=== PATIENT | female | born 1950 | race American Indian/Alaskan Native ===

== ENCOUNTER 2022-03-28 08:04 | Inpatient (IN) | payer MEDICARE ==
[2022-03-28] MEDS ORDERED: IPRATROPIUM/ALBUTEROL SULFATE 3 ML AMPUL.NEB IH ONE (09:03)
[2022-03-28] MEDS ORDERED: methylPREDNISolone Sod Succinate 125 MG/2 ML INJ IV ONE (09:03)
--- NOTE | 2022-03-28 09:07 | Emergency Department Report ---
ED Shortness of Breath HPI - General Stated Complaint: SONIA Time Seen by Provider: 03/28/22 08:52 Source: patient, EMS, old records reviewed Mode of arrival: Stretcher Limitations: No Limitations - History of Present Illness Initial Comments: 71-year-old female with a past medical history of obesity CHF with a EF of 30 to 40%, COPD not currently on home oxygen, hyperglycemia in the past secondary to steroid use, hypertension, paroxysmal atrial fibrillation noncompliant with Xar elto, and possible sleep apnea presents to the hospital with shortness of breath since waking up this morning. Patient states she has had audible wheezing not improved with albuterol inhaler. Positive nonproductive cough without fever reported EMS provided albuterol 2.5 mg in the scene and oxygen via nonrebreather with improvement in symptoms. Patient states she feels much better. She denies anterior chest pain but complains of posterior thoracic pain with inspiration similar to previous COPD episodes. Patient does not have a primary care doctor. As per medical record review patient was admitted here in January for COPD exacerbation and CHF. 2 weeks ago she ran out of most of her prescribed medications excluding Xarelto and currently only has one of her water pills available. She denies history of PE/DVT As per medical record review patient does have a history of CO2 retention and respiratory acidosis and was infected with COVID October 2021 - Related Data Previous Rx's Medication Instructions Recorded Last Taken Type Albuterol Mdi (or & Nicu Only) 2 puff IH QID PRN #8.5 gram 02/10/22 Unknown Rx [ProAir HFA Inhaler] Cholecalciferol Vit D3 [Vitamin D3 1,000 unit PO QDAY #15 tablet 02/10/22 Unknown Rx 1,000 UNIT TAB] Furosemide [Lasix TAB] 40 mg PO QDAY #30 tablet 02/10/22 Unknown Rx Losartan [Cozaar] 50 mg PO QDAY #30 tablet 02/10/22 Unknown Rx Pantoprazole [Protonix TAB] 40 mg PO QDAC #30 tablet 02/10/22 Unknown Rx Rivaroxaban [Xarelto] 20 mg PO QPMDIAB #60 tablet 02/10/22 Unknown Rx Spironolactone [Aldactone] 25 mg PO QDAY #30 tablet 02/10/22 Unknown Rx carvediloL [Coreg] 6.25 mg PO BID #60 tablet 02/10/22 Unknown Rx Allergies Allergy/AdvReac Type Severity Reaction Status Date / Time No Known Allergies Allergy Unverified 10/28/21 21:05 ED Review of Systems ROS: Stated complaint: SONIA Other details as noted in HPI Comment: All other systems reviewed and negative ED Past Medical Hx - Past Medical History Hx Hypertension: Yes Hx Congestive Heart Failure: Yes Hx Diabetes: Yes Hx Asthma: Yes Hx COPD: Yes - Social History Smoking Status: Never Smoker - Medications Home Medications: Home Medications Medication Instructions Recorded Confirmed Last Taken Type Albuterol Mdi (or & Nicu Only) 2 puff IH QID PRN #8.5 gram 02/10/22 Unknown Rx [ProAir HFA Inhaler] Cholecalciferol Vit D3 [Vitamin D3 1,000 unit PO QDAY #15 tablet 02/10/22 Unknown Rx 1,000 UNIT TAB] Furosemide [Lasix TAB] 40 mg PO QDAY #30 tablet 02/10/22 Unknown Rx Losartan [Cozaar] 50 mg PO QDAY #30 tablet 02/10/22 Unknown Rx Pantoprazole [Protonix TAB] 40 mg PO QDAC #30 tablet 02/10/22 Unknown Rx Rivaroxaban [Xarelto] 20 mg PO QPMDIAB #60 tablet 02/10/22 Unknown Rx Spironolactone [Aldactone] 25 mg PO QDAY #30 tablet 02/10/22 Unknown Rx carvediloL [Coreg] 6.25 mg PO BID #60 tablet 02/10/22 Unknown Rx ED Physical Exam - Other Other exam information: General: No acute distress Head: Atraumatic Eyes: normal appearance ENT: Moist mucous membranes Neck: Normal appearance, no midline tenderness Chest: Mild crackle at the base without wheezing, tachypnea, or accessory CV: Regular rate and rhythm Abdomen: Soft, normal bowel sounds, nontender, nondistended, no rebound or guarding Back: Normal inspection Extremity: Trace lower extremity edema, no calf tenderness or leg asymmetry Neuro: Alert O x 3, no facial asymmetry, speech clear, no gross motor sensory deficit Psych: Appropriate behavior Skin: No rash ED Course Vital Signs 03/28/22 03/28/22 08:50 09:50 Temperature 98 F Pulse Rate 69 Pulse Rate [ 71 Bilateral Throughout] Respiratory 20 Rate Respiratory 16 Rate [Bilateral Throughout] Blood Pressure 154/69 O2 Sat by Pulse 100 Oximetry - Reevaluation(s) Reevaluation #1: 03/28/22 11:07 abg requested, still pending due to difficulty obtaining sample as per resp therapist ED Medical Decision Making - Lab Data Result diagrams: 03/28/22 09:14 03/28/22 09:14 Lab Results 03/28/22 03/28/22 03/28/22 Range/Units 09:14 09:14 09:14 WBC 5.2 (4.5-11.0) K/mm3 RBC 4.26 (3.65-5.03) M/mm3 Hgb 12.1 (10.1-14.3) gm/dl Hct 38.2 (30.3-42.9) % MCV 90 (79-97) fl MCH 29 (28-32) pg MCHC 32 (30-34) % RDW 15.0 (13.2-15.2) % Plt Count 195 (140-440) K/mm3 Lymph % (Auto) 18.2 (13.4-35.0) % [place] % (Auto) 7.8 H (0.0-7.3) % Eos % (Auto) 1.5 (0.0-4.3) % Baso % (Auto) 3.0 H (0.0-1.8) % Lymph # (Auto) 0.9 L (1.2-5.4) K/mm3 [place] # (Auto) 0.4 (0.0-0.8) K/mm3 Eos # (Auto) 0.1 (0.0-0.4) K/mm3 Baso # (Auto) 0.2 H (0.0-0.1) K/mm3 Seg Neutrophils % 69.5 (40.0-70.0) % Seg Neutrophils # 3.6 (1.8-7.7) K/mm3 PT 14.8 (12.2-14.9) Sec. INR 1.04 (0.87-1.13) APTT 33.4 (24.2-36.6) Sec. Sodium 141 (137-145) mmol/L Potassium 4.6 (3.6-5.0) mmol/L Chloride 107.6 H (98-107) mmol/L Carbon Dioxide 25 (22-30) mmol/L Anion Gap 13 mmol/L BUN 13 (7-17) mg/dL Creatinine 0.4 L (0.6-1.2) mg/dL Estimated GFR > 60 ml/min BUN/Creatinine Ratio 33 % Glucose 86 (65-100) mg/dL Calcium 9.0 (8.4-10.2) mg/dL Total Bilirubin 1.00 (0.1-1.2) mg/dL AST 25 (5-40) units/L ALT 22 (7-56) units/L Alkaline Phosphatase 79 (35-129) units/L Troponin T < 0.010 (0.00-0.029) ng/mL NT-Pro-B Natriuret Pep (0-900) pg/mL Total Protein 7.2 (6.3-8.2) g/dL Albumin 3.8 L (3.9-5) g/dL Albumin/Globulin Ratio 1.1 % 03/28/22 Range/Units 09:14 WBC (4.5-11.0) K/mm3 RBC (3.65-5.03) M/mm3 Hgb (10.1-14.3) gm/dl Hct (30.3-42.9) % MCV (79-97) fl MCH (28-32) pg MCHC (30-34) % RDW (13.2-15.2) % Plt Count (140-440) K/mm3 Lymph % (Auto) (13.4-35.0) % [place] % (Auto) (0.0-7.3) % Eos % (Auto) (0.0-4.3) % Baso % (Auto) (0.0-1.8) % Lymph # (Auto) (1.2-5.4) K/mm3 [place] # (Auto) (0.0-0.8) K/mm3 Eos # (Auto) (0.0-0.4) K/mm3 Baso # (Auto) (0.0-0.1) K/mm3 Seg Neutrophils % (40.0-70.0) % Seg Neutrophils # (1.8-7.7) K/mm3 PT (12.2-14.9) Sec. INR (0.87-1.13) APTT (24.2-36.6) Sec. Sodium (137-145) mmol/L Potassium (3.6-5.0) mmol/L Chloride (98-107) mmol/L Carbon Dioxide (22-30) mmol/L Anion Gap mmol/L BUN (7-17) mg/dL Creatinine (0.6-1.2) mg/dL Estimated GFR ml/min BUN/Creatinine Ratio % Glucose (65-100) mg/dL Calcium (8.4-10.2) mg/dL Total Bilirubin (0.1-1.2) mg/dL AST (5-40) units/L ALT (7-56) units/L Alkaline Phosphatase (35-129) units/L Troponin T (0.00-0.029) ng/mL NT-Pro-B Natriuret Pep 1939 H (0-900) pg/mL Total Protein (6.3-8.2) g/dL Albumin (3.9-5) g/dL Albumin/Globulin Ratio % - EKG Data -: EKG Interpreted by Me (lyle) EKG shows normal: sinus rhythm, ST-T waves (no stemi) Rate: normal - EKG Data When compared to previous EKG there are: no significant change - Radiology Data Radiology results: report reviewed CHEST 1 VIEW 03/28/2022 10:06 AM INDICATION / CLINICAL INFORMATION: sob. COMPARISON: 02/07/22 FINDINGS: SUPPORT DEVICES: None. HEART / MEDIASTINUM: Heart is enlarged but stable. LUNGS / PLEURA: Mild to moderate bilateral interstitial pulmonary edema. No acute airspace disease. No significant pleural effusion. No pneumothorax. ADDITIONAL FINDINGS: No significant additional findings. IMPRESSION: 1. Cardiomegaly with pulmonary edema. - Medical Decision Making 71-year-old female presents to the hospital with shortness of breath since this morning. Received bronchodilators in route to the hospital with some improv ement in symptoms. Patient did not have wheezing on my initial examination is to have basilar crackles. Chest x-ray suggestive of CHF. Patient admits to noncompliance with most of her medications except for her 1 remaining diuretic pill. Labs show elevated BNP. No signs of ST elevation [place] or NSTEMI at this time. patient provided 1 dose of IV Lasix. Will be discussed with hospitalist for admission abg pending at dispo abg result appears to be a venous sample. Critical Care Time: No Critical care attestation.: If time is entered above; I have spent that time in minutes in the direct care of this critically ill patient, excluding procedure time. ED Disposition Clinical Impression: Acute on chronic systolic heart failure, COPD exacerbation, Noncompliance with medication regimen Disposition: 09 ADMITTED INPATIENT Is pt being admited?: Yes Condition: Stable Instructions: Chronic Obstructive Pulmonary Disease (ED) Time of Disposition: 11:10 (Dr Monique/hospitalist)
--- NOTE | 2022-03-28 10:25 | XRay Report ---
CHEST 1 VIEW 03/28/2022 10:06 AM INDICATION / CLINICAL INFORMATION: sob. COMPARISON: 02/07/22 FINDINGS: SUPPORT DEVICES: None. HEART / MEDIASTINUM: Heart is enlarged but stable. LUNGS / PLEURA: Mild to moderate bilateral interstitial pulmonary edema. No acute airspace disease. N o significant pleural effusion. No pneumothorax. ADDITIONAL FINDINGS: No significant additional findings. IMPRESSION: 1. Cardiomegaly with pulmonary edema. Signer Name: Aishwarya Levy MD Signed: 03/28/2022 10:20 AM Workstation Name: [id number]
[2022-03-28 10:30] LABS: Basophils # (Auto) 0.2 K/mm3 (0.0-0.1); Eosinophils # (Auto) 0.1 K/mm3 (0.0-0.4); Eosinophils % (Auto) 1.5 % (0.0-4.3); Hematocrit 38.2 % (30.3-42.9); Hemoglobin 12.1 gm/dl (10.1-14.3); Lymphocytes # (Auto) 0.9 K/mm3 (1.2-5.4); Lymphocytes % (Auto) 18.2 % (13.4-35.0); Mean Corpuscular HGB Conc 32 % (30-34); Mean Corpuscular Volume 90 fl (79-97); Monocytes # (Auto) 0.4 K/mm3 (0.0-0.8); Monocytes % (Auto) 7.8 % (0.0-7.3); Platelet Count 195 K/mm3 (140-440); Red Blood Count 4.26 M/mm3 (3.65-5.03)
[2022-03-28] MEDS ORDERED: FUROSEMIDE 40 MG/4 ML INJ IV ONE (10:46)
[2022-03-28 10:48] LABS: INR 1.04 (0.87-1.13)
[2022-03-28 10:49] LABS: Partial Thromboplastin Time 33.4 Sec. (24.2-36.6)
[2022-03-28 10:51] LABS: Alanine Aminotransferase 22 units/L (7-56); Albumin 3.8 g/dL (3.9-5); Blood Urea Nitrogen 13 mg/dL (7-17); Hemolysis Index 18
[2022-03-28 11:02] LABS: BUN/Creatinine Ratio 33
--- NOTE | 2022-03-28 11:12 | History and Physical Report ---
History of Present Illness Chief complaint: I am short of breath and I feel swollen History of present illness: 71 YO Female with COPD, Systolic/Diastolic CHF(EF 35%), HTN, DM, Metabolic Syndrome, GERD, Atrial Fib on therapeutic anticoagulation with Xarelto presents to ED for evaluation. Patient reports "I am short of breath and I feel swollen". Patient states that over the past 2 days she has experienced shortnes s of breath, lower extremity edema, decreased exercise tolerance, dyspnea on exertion, dyspnea at rest. Patient acknowledges orthopnea as well as paroxysmal nocturnal dyspnea. Patient knowledges noncompliance with medication over the past several weeks as well as noncompliance with low-sodium diet. Patient acknowledges 10 pound weight gain over the past week. EMS was notified and upon arrival the patient was found to be in distress and subsequent transported to [facility] for further care and evaluation of the aforementioned symptoms. The patient was seen and evaluated in the emergency department. All lab and imaging studies reviewed. The patient was found to be in significant respiratory distress using accessory muscles to breathe, leaning forward in bed, tripoding, and unable to speak in complete sentences. Patient found to have a pulse oximetry of 89% on room air which is consistent with acute hypoxemic respiratory failure. Patient also found to have clinical symptoms consistent with CHF decompensation. Patient admitted to medical floor and initiated on CHF protocol. Patient a dmitted due to increased risk of worsening symptoms after medical stabilization. Patient denies fever, chills, palpitation, productive cough, skin rash, recent contact, known exposure to COVID-19. Prior admission on 02/07/2022 reviewed. All medication listed at time of admission has been reconciled. Advanced care planning conducted in ED. Past History Past Medical History: COPD, diabetes, heart failure, hypertension, other (See HPI) Past Surgical History: No surgical history, Other (Reviewed) Social history: single. denies: smoking, alcohol abuse, prescription drug abuse Family history: diabetes, hypertension Medications and Allergies Allergies Allergy/AdvReac Type Severity Reaction Status Date / Time No Known Allergies Allergy Unverified 10/28/21 21:05 Home Medications Medication Instructions Recorded Confirmed Last Taken Type Albuterol Mdi (or & Nicu Only) 2 puff IH QID PRN #8.5 gram 02/10/22 Unknown Rx [ProAir HFA Inhaler] Cholecalciferol Vit D3 [Vitamin D3 1,000 unit PO QDAY #15 tablet 02/10/22 Unknown Rx 1,000 UNIT TAB] Furosemide [Lasix TAB] 40 mg PO QDAY #30 tablet 02/10/22 Unknown Rx Losartan [Cozaar] 50 mg PO QDAY #30 tablet 02/10/22 Unknown Rx Pantoprazole [Protonix TAB] 40 mg PO QDAC #30 tablet 02/10/22 Unknown Rx Rivaroxaban [Xarelto] 20 mg PO QPMDIAB #60 tablet 02/10/22 Unknown Rx Spironolactone [Aldactone] 25 mg PO QDAY #30 tablet 02/10/22 Unknown Rx carvediloL [Coreg] 6.25 mg PO BID #60 tablet 02/10/22 Unknown Rx Review of Systems Constitutional: weight gain, no weight loss, no fever, no chills Ears, nose, mouth and throat: no ear pain, no ear discharge, no tinnitis, no decreased hearing, no nose pain Breasts: no change in shape, no swelling, no mass Cardiovascular: orthopnea, shortness of breath, dyspnea on exertion, paroxysmal nocturnal dyspnea, high blood pressure, leg edema, decreased exercise tolerance, no chest pain Respiratory: no cough, no excessive sputum, no hemoptysis Gastrointestinal: no abdominal pain, no nausea, no vomiting, no diarrhea, no constipation Genitourinary Female: no pelvic pain, no flank pain, no dysuria, no urinary frequency, no urgency Rectal: no pain, no incontinence Musculoskeletal: no neck stiffness, no shooting arm pain, no low back pain, no shooting leg pain Integumentary: no rash, no pruritis, no wounds, no jaundice Neurological: no head injury, no paralysis, no weakness, no syncope, no ataxia Psychiatric: no anxiety, no sleep disturbances, no insomnia, no hypersomnia, no change in libido, no suicidal ideation Endocrine: no heat intolerance, no excessive thirst, no polyuria, no nocturia, no flushing Hematologic/Lymphatic: no easy bruising, no easy bleeding Allergic/Immunologic: no allergic rhinitis Exam - Constitutional Vitals: Temp Pulse Resp BP Pulse Ox 98 F 69 20 154/69 100 03/28/22 08:50 03/28/22 08:50 03/28/22 08:50 03/28/22 08:50 03/28/22 08:50 General appearance: Present: mild distress, obese - EENT Eyes: Present: PERRL ENT: hearing intact, clear oral mucosa - Neck Neck: Present: masses or JVD - Respiratory Respiratory effort: labored, accessory muscle use, stridor Respiratory: bilateral: diminished, rales - Cardiovascular Rhythm: irregularly irregular - Extremities Extremity abnormal: edema Peripheral Pulses: within normal limits - Abdominal General gastrointestinal: Present: soft, non-tender, non-distended, normal bowel sounds Female genitourinary: Present: normal - Integumentary Integumentary: Present: clear, dry - Musculoskeletal Musculoskeletal: generalized weakness - Psychiatric Psychiatric: appropriate mood/affect, intact judgment & insight - Neurologic Neurologic: CNII-XII intact, moves all extremities HEART Score - HEART Score Troponin: Troponin T < 0.010 ng/mL (0.00-0.029) 03/28/22 09:14 Results - Labs CBC & Chem 7: 03/28/22 09:14 03/28/22 09:14 Labs: Abnormal lab results 03/28/22 03/28/22 03/28/22 Range/Units 09:14 09:14 09:14 [place] % (Auto) 7.8 H (0.0-7.3) % Baso % (Auto) 3.0 H (0.0-1.8) % Lymph # (Auto) 0.9 L (1.2-5.4) K/mm3 Baso # (Auto) 0.2 H (0.0-0.1) K/mm3 Chloride 107.6 H (98-107) mmol/L Creatinine 0.4 L (0.6-1.2) mg/dL NT-Pro-B Natriuret Pep 1939 H (0-900) pg/mL Albumin 3.8 L (3.9-5) g/dL Assessment and Plan - Patient Problems (1) Acute respiratory failure with hypoxemia Status: Acute Plan to address problem: Chest x-ray, supplemental oxygen, pulse oximetry, nebulizer therapy, arterial blood gas, noninvasive positive pressure ventilation as clinically indicated. Pulmonary toilet. (2) Acute on chronic systolic heart failure Status: Acute Plan to address problem: Strict I's/O, monitor urine output every shift, daily weight, afterload reduction, blood pressure control, diuresis. Echocardiogram from 10/2021 reviewed. (3) Metabolic syndrome Status: Acute Plan to address problem: Risk factor reduction, weight control, balanced diet, increase physical activity discharge. (4) Diabetes Status: Acute Plan to address problem: Consistent carbohydrate diet, Accu-Chek, insulin protocol, hypoglycemia protocol. (5) Hypertension Status: Acute Qualifiers: Hypertension type: primary hypertension Qualified Code(s): I10 - Essential (primary) hypertension Plan to address problem: Monitor blood pressure every shift, continue medical management. (6) Noncompliance with medication regimen Status: Acute Plan to address problem: Patient counseled regarding compliance with outpatient medication. Patient knowledges understanding instructions. (7) Paroxysmal atrial fibrillation Status: Acute Plan to address problem: Rate currently controlled, continue therapeutic anticoagulation, supportive care. (8) DVT prophylaxis Status: Acute Plan to address problem: SCD to bilateral lower extremities while in bed, continue therapeutic anticoagulation. (9) Advance care planning Status: Acute Plan to address problem: Disease education conducted, care plan discussed, diagnoses discussed, prognosis discussed, patient is full code. Patient knowledges understanding agreement with care plan, +30 minutes. (10) Preventative health care Status: Acute Plan to address problem: Patient counseled regarding balanced diet, meal planning, increase physical activity discharge. Risk factor reduction for cardiovascular disease. Patient instructed to follow-up with primary care physician as outpatient for all age and risk factor appropriate screening test. +30 minutes.
[2022-03-28 11:35] LABS: ABG Base Excess 0.9 mmol/L (-2.0-3.0); ABG HCO3 25.1 mmol/L (20.0-26.0); ABG Methemoglobin 0.6 % (0.0-1.5); ABG PCO2 38.7 mm Hg; ABG PH 7.43 pH Units (7.350-7.450); ABG PO2 43.3 mm Hg (80.0-90.0)
[2022-03-28] MEDS ORDERED: ACETAMINOPHEN 325 MG TAB PO PRN (12:04)
[2022-03-28] MEDS ORDERED: ONDANSETRON 4 MG/2 ML INJ IV PRN (12:04)
[2022-03-28] MEDS ORDERED: oxyCODONE /ACETAMINOPHEN 5-325MG TAB PO PRN (12:04)
[2022-03-28] MEDS ORDERED: HYDROmorphone 0.5 MG/0.5 ML INJ IV PRN (12:04)
[2022-03-28] MEDS ORDERED: ALBUTEROL 2.5 MG/3 ML NEBU IH PRN (12:04)
[2022-03-28] MEDS: FUROSEMIDE 40 MG/4 ML INJ IV SCH (19:06)
--- NOTE | 2022-03-28 21:46 | Electrocardiograph Report ---
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
[2022-03-29] MEDS: FUROSEMIDE 40 MG/4 ML INJ IV SCH ×2 (06:26→17:20)
[2022-03-29 08:24] LABS: Alanine Aminotransferase 23 units/L (7-56); Albumin 4.6 g/dL (3.9-5); Blood Urea Nitrogen 18 mg/dL (7-17); Hemolysis Index 5
[2022-03-29 08:35] LABS: BUN/Creatinine Ratio 36
[2022-03-29] MEDS ORDERED: NON-FORMULARY EACH (Rivaroxaban 20 MG Tablet) PO SCH (10:00)
[2022-03-29] MEDS ORDERED: ALBUTEROL 8.5 GM MDI INHALATION IH PRN (16:56)
[2022-03-29] MEDS ORDERED: LOSARTAN 50 MG TAB PO SCH (16:58)
--- NOTE | 2022-03-29 16:59 | Progress Note ---
Assessment and Plan 71 YO Female with COPD, Systolic/Diastolic CHF(EF 35%), HTN, DM, Metabolic Syndrome, GERD, Atrial Fib on therapeutic anticoagulation with Xarelto presents to ED for worsening shortness of breath and lower extremity swelling. Patient found to have a pulse oximetry of 89% on room air , placed on supplemental O2 and admitted for possible CHF exacerbation. 03/29/22: Patient on 2 L nasal cannula O2, continue diuresis, hold beta-jass for now. Continue Cozaar and Xarelto. Nebulizer breathing treatment as needed. Monitor ins and outs and daily weight. Assessment and plan: --Acute on chronic systolic heart failure[EF 35 to 40%] Continue IV diuretics, Cozaar, input output monitoring We will hold beta-jass as patient on acute exacerbation Low-sodium diet, fluid restriction, cardiology consult, cardiac diet. Input output monitoring, daily weights --COPD (chronic obstructive pulmonary disease) Oxygen by nasal cannula 3 L/min. DuoNeb by nebulizer every 4 hours. Albuterol via nebulizer every 4 hours as needed --Hypertension/moderate control Continue current antihypertensives losartan 25 mg p.o. daily. Spironolactone 25 mg p.o. daily. Coreg 6.25 mg p.o. twice daily As needed hydralazine --Acute respiratory failure with hypoxemia Due to COPD exacerbation oxygen by nasal cannula 3 L/min. DuoNeb by nebulizer every 4 hours. Albuterol via nebulizer every 4 hours as needed --History of paroxysmal atrial fibrillation Rate controlled Continue Coreg 6.25 mg p.o. twice daily. Xarelto 20 mg p.o. daily. --Obesity; BMI 41.6 Advised diet modification, exercise as tolerated, weight reduction when you are medically stable --Possible obstructive sleep apnea; CPAP at night --Full CODE STATUS -- DVT prophylaxis Patient is already on Xarelto 20 mg p.o. daily Subjective Date of service: 03/29/22 Interval history: Patient seen and examined. Medical records and medication list reviewed. No acute event overnight noted by the RN. Patient continues to complains of difficulty breathing even on minimal exertion. Vitals noted Discussed plan of care at bedside with patient. Objective - Exam Narrative Exam: General appearance: Present: mild distress, obese - EENT Eyes: Present: PERRL ENT: hearing intact, clear oral mucosa - Neck Neck: Present: masses or JVD - Respiratory Respiratory effort: labored, accessory muscle use, stridor Respiratory: bilateral: diminished, rales - Cardiovascular Rhythm: irregularly irregular - Extremities Extremity abnormal: edema Peripheral Pulses: within normal limits - Abdominal General gastrointestinal: Present: soft, non-tender, non-distended, normal bowel sounds Female genitourinary: Present: normal - Integumentary Integumentary: Present: clear, dry - Musculoskeletal Musculoskeletal: generalized weakness - Psychiatric Psychiatric: appropriate mood/affect, intact judgment & insight - Neurologic Neurologic: CNII-XII intact, moves all extremities - Constitutional Vitals: Vital Signs - 12hr 03/29/22 03/29/22 03/29/22 06:44 08:00 08:51 Temperature 98.4 F 97.5 F L Pulse Rate 61 68 64 Respiratory 16 Rate Blood Pressure 154/75 160/66 O2 Sat by Pulse 97 95 Oximetry 03/29/22 03/29/22 03/29/22 09:52 11:53 16:00 Temperature Pulse Rate 68 Respiratory 18 Rate Blood Pressure O2 Sat by Pulse 99 96 Oximetry 03/29/22 16:35 Temperature 98.3 F Pulse Rate 71 Respiratory Rate Blood Pressure 159/77 O2 Sat by Pulse 96 Oximetry - Labs CBC & Chem 7: 03/28/22 09:14 03/29/22 07:36 Labs: Abnormal lab results 03/29/22 Range/Units 07:36 Carbon Dioxide 31 H (22-30) mmol/L BUN 18 H (7-17) mg/dL Creatinine 0.5 L (0.6-1.2) mg/dL Glucose 103 H (65-100) mg/dL Total Protein 8.6 H (6.3-8.2) g/dL HEART Score - HEART Score Troponin: Troponin T < 0.010 ng/mL (0.00-0.029) 03/28/22 14:34
[2022-03-29] MEDS: LOSARTAN 50 MG TAB PO SCH (17:29)
[2022-03-30] MEDS: FUROSEMIDE 40 MG/4 ML INJ IV SCH ×2 (06:51→18:05)
[2022-03-30] MEDS: RIVAROXABAN 20 MG TAB PO SCH (09:20)
[2022-03-30] MEDS: LOSARTAN 50 MG TAB PO SCH (09:21)
[2022-03-30] MEDS: CHOLECALCIFEROL (VIT D3) 1000 UNIT (25 mcg) TAB PO SCH (09:23)
[2022-03-30] MEDS ORDERED: LOSARTAN 50 MG TAB PO SCH (10:00)
--- NOTE | 2022-03-30 10:02 | Electrocardiograph Report ---
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
--- NOTE | 2022-03-30 10:11 | Progress Note ---
Assessment and Plan Assessment and plan: 71 YO Female with COPD, Systolic/Diastolic CHF(EF 35%), HTN, DM, Metabolic Syndrome, GERD, Atrial Fib on therapeutic anticoagulation with Xarelto presents to ED for worsening shortness of breath and lower extremity swelling. Patient found to have a pulse oximetry of 89% on room air , placed on supplemental O2 and admitted for possible CHF exacerbation. 03/29/22: Patient on 2 L nasal cannula O2, continue diuresis, hold beta-jass for now. Continue Cozaar and Xarelto. Nebulizer breathing treatment as needed. Monitor ins and outs and daily weight. 03/30/2022; patient's symptoms slightly improved, closely monitor, continue current management DC planning per case management , Consults and recommendations noted and appreciated Assessment and plan: --Acute on chronic systolic heart failure[EF 35 to 40%] Continue IV diuretics, Cozaar, input output monitoring We will hold beta-jass as patient on acute exacerbation Low-sodium diet, fluid restriction, cardiology consult, cardiac diet. Input output monitoring, daily weights --COPD (chronic obstructive pulmonary disease) Oxygen by nasal cannula 3 L/min. DuoNeb by nebulizer every 4 hours. Albuterol via nebulizer every 4 hours as needed --Hypertension/moderate control Continue current antihypertensives losartan 25 mg p.o. daily. Spironolactone 25 mg p.o. daily. Coreg 6.25 mg p.o. twice daily As needed hydralazine --Acute respiratory failure with hypoxemia Due to COPD exacerbation oxygen by nasal cannula 3 L/min. DuoNeb by nebulizer every 4 hours. Albuterol via nebulizer every 4 hours as n eeded --History of paroxysmal atrial fibrillation Rate controlled Continue Coreg 6.25 mg p.o. twice daily. Xarelto 20 mg p.o. daily. --Obesity; BMI 41.6 Advised diet modification, exercise as tolerated, weight reduction when you are medically stable --Possible obstructive sleep apnea; CPAP at night --Full CODE STATUS -- DVT prophylaxis Patient is already on Xarelto 20 mg p.o. daily Closely monitor the patient and adjust the management as needed Plan of care reviewed with the patient and her nurse Also discussed the discharge planning with case management History Interval history: I have seen and examined the patient at the bedside Patient's chart and medications reviewed No new events reported by nursing Vital signs noted Hospitalist Physical - Constitutional Vitals: Temp Pulse Resp BP Pulse Ox 98.7 F 65 18 135/53 95 03/30/22 08:28 03/30/22 08:28 03/30/22 08:28 03/30/22 08:28 03/30/22 09:21 General appearance: Present: no acute distress, well-nourished, obese (Morbidly obese) - EENT Eyes: Present: PERRL, EOM intact - Neck Neck: Present: supple, normal ROM - Respiratory Respiratory effort: normal Respiratory: bilateral: diminished, negative: rales, rhonchi, wheezing - Cardiovascular Rhythm: regular Heart Sounds: Present: S1 & S2 - Extremities Extremities: no ischemia, No edema - Abdominal General gastrointestinal: soft, non-tender, non-distended, normal bowel sounds - Integumentary Integumentary: Present: clear, warm - Psychiatric Psychiatric: appropriate mood/affect, cooperative - Neurologic Neurologic: CNII-XII intact, moves all extremities HEART Score - HEART Score Troponin: Troponin T < 0.010 ng/mL (0.00-0.029) 03/28/22 14:34 Results - Labs CBC & Chem 7: 03/28/22 09:14 03/29/22 07:36 Labs: Laboratory Last Values WBC 5.2 K/mm3 (4.5-11.0) 03/28/22 09:14 RBC 4.26 M/mm3 (3.65-5.03) 03/28/22 09:14 Hgb 12.1 gm/dl (10.1-14.3) 03/28/22 09:14 Hct 38.2 % (30.3-42.9) 03/28/22 09:14 MCV 90 fl (79-97) 03/28/22 09:14 MCH 29 pg (28-32) 03/28/22 09:14 MCHC 32 % (30-34) 03/28/22 09:14 RDW 15.0 % (13.2-15.2) 03/28/22 09:14 Plt Count 195 K/mm3 (140-440) 03/28/22 09:14 Lymph % (Auto) 18.2 % (13.4-35.0) 03/28/22 09:14 Weber % (Auto) 7.8 % (0.0-7.3) H 03/28/22 09:14 Eos % (Auto) 1.5 % (0.0-4.3) 03/28/22 09:14 Baso % (Auto) 3.0 % (0.0-1.8) H 03/28/22 09:14 Lymph # (Auto) 0.9 K/mm3 (1.2-5.4) L 03/28/22 09:14 Weber # (Auto) 0.4 K/mm3 (0.0-0.8) 03/28/22 09:14 Eos # (Auto) 0.1 K/mm3 (0.0-0.4) 03/28/22 09:14 Baso # (Auto) 0.2 K/mm3 (0.0-0.1) H 03/28/22 09:14 Seg Neutrophils % 69.5 % (40.0-70.0) 03/28/22 09:14 Seg Neutrophils # 3.6 K/mm3 (1.8-7.7) 03/28/22 09:14 PT 14.8 Sec. (12.2-14.9) 03/28/22 09:14 INR 1.04 (0.87-1.13) 03/28/22 09:14 APTT 33.4 Sec. (24.2-36.6) 03/28/22 09:14 ABG pH 7.430 pH Units (7.350-7.450) 03/28/22 11:36 ABG pCO2 38.7 mm Hg 03/28/22 11:36 ABG pO2 43.3 mm Hg (80.0-90.0) L 03/28/22 11:36 ABG HCO3 25.1 mmol/L (20.0-26.0) 03/28/22 11:36 ABG O2 Saturation 82.0 % (95.0-99.0) L 03/28/22 11:36 ABG O2 Content 14.9 (0.0-44) 03/28/22 11:36 ABG Base Excess 0.9 mmol/L (-2.0-3.0) 03/28/22 11:36 ABG Hemoglobin 13.3 gm/dl (12.0-16.0) 03/28/22 11:36 ABG Carboxyhemoglobin 2.0 % (0.0-5.0) 03/28/22 11:36 ABG Methemoglobin 0.6 % (0.0-1.5) 03/28/22 11:36 Oxyhemoglobin 79.9 % (95.0-99.0) L 03/28/22 11:36 FiO2 21 % 03/28/22 11:36 Sodium 142 mmol/L (137-145) 03/29/22 07:36 Potassium 4.2 mmol/L (3.6-5.0) 03/29/22 07:36 Chloride 100.5 mmol/L (98-107) 03/29/22 07:36 Carbon Dioxide 31 mmol/L (22-30) H 03/29/22 07:36 Anion Gap 15 mmol/L 03/29/22 07:36 BUN 18 mg/dL (7-17) H 03/29/22 07:36 Creatinine 0.5 mg/dL (0.6-1.2) L 03/29/22 07:36 Estimated GFR > 60 ml/min 03/29/22 07:36 BUN/Creatinine Ratio 36 % 03/29/22 07:36 Glucose 103 mg/dL (65-100) H 03/29/22 07:36 Calcium 10.0 mg/dL (8.4-10.2) 03/29/22 07:36 Total Bilirubin 1.00 mg/dL (0.1-1.2) 03/29/22 07:36 AST 22 units/L (5-40) 03/29/22 07:36 ALT 23 units/L (7-56) 03/29/22 07:36 Alkaline Phosphatase 92 units/L (35-129) 03/29/22 07:36 Troponin T < 0.010 ng/mL (0.00-0.029) 03/28/22 14:34 NT-Pro-B Natriuret Pep 1939 pg/mL (0-900) H 03/28/22 09:14 Total Protein 8.6 g/dL (6.3-8.2) H 03/29/22 07:36 Albumin 4.6 g/dL (3.9-5) 03/29/22 07:36 Albumin/Globulin Ratio 1.2 % 03/29/22 07:36 Ortiz/IV: Voiding Method Toilet Active Medications - Current Medications Current Medications: Generic Name Dose Route Start Last Admin Trade Name Freq PRN Reason Stop Dose Admin Acetaminophen 650 mg 03/28/22 12:04 Acetaminophen 325 Mg Tab PO Q4H PRN Pain MILD(1-3)/Fever >100.5/GAGNON Albuterol 2.5 mg 03/28/22 12:04 Albuterol 2.5 Mg/3 Ml Nebu IH Q4HRT PRN Shortness Of Breath Cholecalciferol 1,000 unit 03/30/22 10:00 03/30/22 09:23 Cholecalciferol (Vit D3) 1000 Unit (25 Mcg) Tab PO 1,000 unit QDAY VALE Administration Furosemide 40 mg 03/28/22 18:00 03/30/22 06:51 Furosemide 40 Mg/4 Ml Inj IV 40 mg BID@0600,1800 VALE Administration Hydromorphone HCl 0.5 mg 03/28/22 12:04 Hydromorphone 0.5 Mg/0.5 Ml Inj IV Q23H PRN Pain , Severe (7-10) Losartan Potassium 50 mg 03/29/22 18:00 03/30/22 09:21 Losartan 50 Mg Tab PO 50 mg QDAY VALE Administration Ondansetron HCl 4 mg 03/28/22 12:04 Ondansetron 4 Mg/2 Ml Inj IV Q8H PRN Nausea And Vomiting Oxycodone/Acetaminophen 1 tab 03/28/22 12:04 Oxycodone /Acetaminophen 5-325mg Tab PO Q16H PRN Pain, Moderate (4-6) Pantoprazole Sodium 40 mg 03/30/22 17:00 Pantoprazole 40 Mg Tab PO QDAC VALE Rivaroxaban 20 mg 03/30/22 08:00 03/30/22 09:20 Rivaroxaban 20 Mg Tab PO 20 mg QDDIAB VALE Administration Sodium Chloride 10 ml 03/28/22 22:00 03/30/22 09:22 Sodium Chloride 0.9% 10 Ml Flush Syringe IV 10 ml BID VALE Administration Sodium Chloride 10 ml 03/28/22 12:04 Sodium Chloride 0.9% 10 Ml Flush Syringe IV PRN PRN LINE FLUSH
[2022-03-30] MEDS: PANTOPRAZOLE 40 MG TAB PO SCH (18:05)
[2022-03-31] MEDS: FUROSEMIDE 40 MG/4 ML INJ IV SCH ×2 (05:34→18:19)
[2022-03-31] MEDS: RIVAROXABAN 20 MG TAB PO SCH (10:10)
[2022-03-31] MEDS: LOSARTAN 50 MG TAB PO SCH (10:10)
[2022-03-31] MEDS: PANTOPRAZOLE 40 MG TAB PO SCH (10:10)
[2022-03-31] MEDS: CHOLECALCIFEROL (VIT D3) 1000 UNIT (25 mcg) TAB PO SCH (10:11)
--- NOTE | 2022-03-31 20:53 | Progress Note ---
Assessment and Plan Assessment and plan: 71 YO Female with COPD, Systolic/Diastolic CHF(EF 35%), HTN, DM, Metabolic Syndrome, GERD, Atrial Fib on therapeutic anticoagulation with Xarelto presents to ED for worsening shortness of breath and lower extremity swelling. Patient found to have a pulse oximetry of 89% on room air , placed on supplemental O2 and admitted for possible CHF exacerbation. 03/29/22: Patient on 2 L nasal cannula O2, continue diuresis, hold beta-jass for now. Continue Cozaar and Xarelto. Nebulizer breathing treatment as needed. Monitor ins and outs and daily weight. 03/30/2022; patient's symptoms slightly improved, closely monitor, continue current management DC planning per case management , Consults and recommendations noted and appreciated Assessment and plan: --Acute on chronic systolic heart failure[EF 35 to 40%] Continue IV diuretics, Cozaar, input output monitoring We will hold beta-jass as patient on acute exacerbation Low-sodium diet, fluid restriction, cardiology consult, cardiac diet. Input output monitoring, daily weights --COPD (chronic obstructive pulmonary disease) Oxygen by nasal cannula 3 L/min. DuoNeb by nebulizer every 4 hours. Albuterol via nebulizer every 4 hours as needed --Hypertension/moderate control Continue current antihypertensives losartan 25 mg p.o. daily. Spironolactone 25 mg p.o. daily. Coreg 6.25 mg p.o. twice daily As needed hydralazine --Acute respiratory failure with hypoxemia Due to COPD exacerbation oxygen by nasal cannula 3 L/min. DuoNeb by nebulizer every 4 hours. Albuterol via nebulizer every 4 hours as n eeded --History of paroxysmal atrial fibrillation Rate controlled Continue Coreg 6.25 mg p.o. twice daily. Xarelto 20 mg p.o. daily. --Obesity; BMI 41.6 Advised diet modification, exercise as tolerated, weight reduction when you are medically stable --Possible obstructive sleep apnea; CPAP at night --Full CODE STATUS -- DVT prophylaxis Patient is already on Xarelto 20 mg p.o. daily Closely monitor the patient and adjust the management as needed Plan of care reviewed with the patient and her nurse Also discussed the discharge planning with case management History Interval history: I have seen and examined the patient at the bedside Hospitalist Physical - Constitutional Vitals: Temp Pulse Resp BP Pulse Ox 97.7 F 67 18 128/47 97 03/31/22 04:40 03/31/22 08:00 03/31/22 04:40 03/31/22 04:40 03/31/22 11:00 General appearance: Present: no acute distress, well-nourished, obese (Morbidly obese) HEART Score - HEART Score Troponin: Troponin T < 0.010 ng/mL (0.00-0.029) 03/28/22 14:34 Results - Labs CBC & Chem 7: 03/28/22 09:14 03/29/22 07:36 Labs: Laboratory Last Values WBC 5.2 K/mm3 (4.5-11.0) 03/28/22 09:14 RBC 4.26 M/mm3 (3.65-5.03) 03/28/22 09:14 Hgb 12.1 gm/dl (10.1-14.3) 03/28/22 09:14 Hct 38.2 % (30.3-42.9) 03/28/22 09:14 MCV 90 fl (79-97) 03/28/22 09:14 MCH 29 pg (28-32) 03/28/22 09:14 MCHC 32 % (30-34) 03/28/22 09:14 RDW 15.0 % (13.2-15.2) 03/28/22 09:14 Plt Count 195 K/mm3 (140-440) 03/28/22 09:14 Lymph % (Auto) 18.2 % (13.4-35.0) 03/28/22 09:14 Clarke % (Auto) 7.8 % (0.0-7.3) H 03/28/22 09:14 Eos % (Auto) 1.5 % (0.0-4.3) 03/28/22 09:14 Baso % (Auto) 3.0 % (0.0-1.8) H 03/28/22 09:14 Lymph # (Auto) 0.9 K/mm3 (1.2-5.4) L 03/28/22 09:14 Clarke # (Auto) 0.4 K/mm3 (0.0-0.8) 03/28/22 09:14 Eos # (Auto) 0.1 K/mm3 (0.0-0.4) 03/28/22 09:14 Baso # (Auto) 0.2 K/mm3 (0.0-0.1) H 03/28/22 09:14 Seg Neutrophils % 69.5 % (40.0-70.0) 03/28/22 09:14 Seg Neutrophils # 3.6 K/mm3 (1.8-7.7) 03/28/22 09:14 PT 14.8 Sec. (12.2-14.9) 03/28/22 09:14 INR 1.04 (0.87-1.13) 03/28/22 09:14 APTT 33.4 Sec. (24.2-36.6) 03/28/22 09:14 ABG pH 7.430 pH Units (7.350-7.450) 03/28/22 11:36 ABG pCO2 38.7 mm Hg 03/28/22 11:36 ABG pO2 43.3 mm Hg (80.0-90.0) L 03/28/22 11:36 ABG HCO3 25.1 mmol/L (20.0-26.0) 03/28/22 11:36 ABG O2 Saturation 82.0 % (95.0-99.0) L 03/28/22 11:36 ABG O2 Content 14.9 (0.0-44) 03/28/22 11:36 ABG Base Excess 0.9 mmol/L (-2.0-3.0) 03/28/22 11:36 ABG Hemoglobin 13.3 gm/dl (12.0-16.0) 03/28/22 11:36 ABG Carboxyhemoglobin 2.0 % (0.0-5.0) 03/28/22 11:36 ABG Methemoglobin 0.6 % (0.0-1.5) 03/28/22 11:36 Oxyhemoglobin 79.9 % (95.0-99.0) L 03/28/22 11:36 FiO2 21 % 03/28/22 11:36 Sodium 142 mmol/L (137-145) 03/29/22 07:36 Potassium 4.2 mmol/L (3.6-5.0) 03/29/22 07:36 Chloride 100.5 mmol/L (98-107) 03/29/22 07:36 Carbon Dioxide 31 mmol/L (22-30) H 03/29/22 07:36 Anion Gap 15 mmol/L 03/29/22 07:36 BUN 18 mg/dL (7-17) H 03/29/22 07:36 Creatinine 0.5 mg/dL (0.6-1.2) L 03/29/22 07:36 Estimated GFR > 60 ml/min 03/29/22 07:36 BUN/Creatinine Ratio 36 % 03/29/22 07:36 Glucose 103 mg/dL (65-100) H 03/29/22 07:36 POC Glucose 86 mg/dL (70-105) 03/31/22 12:09 Calcium 10.0 mg/dL (8.4-10.2) 03/29/22 07:36 Total Bilirubin 1.00 mg/dL (0.1-1.2) 03/29/22 07:36 AST 22 units/L (5-40) 03/29/22 07:36 ALT 23 units/L (7-56) 03/29/22 07:36 Alkaline Phosphatase 92 units/L (35-129) 03/29/22 07:36 Troponin T < 0.010 ng/mL (0.00-0.029) 03/28/22 14:34 NT-Pro-B Natriuret Pep 1939 pg/mL (0-900) H 03/28/22 09:14 Total Protein 8.6 g/dL (6.3-8.2) H 03/29/22 07:36 Albumin 4.6 g/dL (3.9-5) 03/29/22 07:36 Albumin/Globulin Ratio 1.2 % 03/29/22 07:36 Ortiz/IV: Voiding Method External Female Catheter Active Medications - Current Medications Current Medications: Generic Name Dose Route Start Last Admin Trade Name Freq PRN Reason Stop Dose Admin Acetaminophen 650 mg 03/28/22 12:04 Acetaminophen 325 Mg Tab PO Q4H PRN Pain MILD(1-3)/Fever >100.5/GAGNON Albuterol 2.5 mg 03/28/22 12:04 Albuterol 2.5 Mg/3 Ml Nebu IH Q4HRT PRN Shortness Of Breath Cholecalciferol 1,000 unit 03/30/22 10:00 03/31/22 10:11 Cholecalciferol (Vit D3) 1000 Unit (25 Mcg) Tab PO 1,000 unit QDAY VALE Administration Furosemide 40 mg 03/28/22 18:00 03/31/22 18:19 Furosemide 40 Mg/4 Ml Inj IV 40 mg BID@0600,1800 VALE Administration Hydromorphone HCl 0.5 mg 03/28/22 12:04 Hydromorphone 0.5 Mg/0.5 Ml Inj IV Q23H PRN Pain , Severe (7-10) Losartan Potassium 50 mg 03/29/22 18:00 03/31/22 10:10 Losartan 50 Mg Tab PO 50 mg QDAY VALE Administration Ondansetron HCl 4 mg 03/28/22 12:04 Ondansetron 4 Mg/2 Ml Inj IV Q8H PRN Nausea And Vomiting Oxycodone/Acetaminophen 1 tab 03/28/22 12:04 Oxycodone /Acetaminophen 5-325mg Tab PO Q16H PRN Pain, Moderate (4-6) Pantoprazole Sodium 40 mg 03/30/22 17:00 03/31/22 10:10 Pantoprazole 40 Mg Tab PO 40 mg QDAC VALE Administration Rivaroxaban 20 mg 03/30/22 08:00 03/31/22 10:10 Rivaroxaban 20 Mg Tab PO 20 mg QDDIAB VALE Administration Sodium Chloride 10 ml 03/28/22 22:00 03/31/22 13:48 Sodium Chloride 0.9% 10 Ml Flush Syringe IV 10 ml BID VALE Administration Sodium Chloride 10 ml 03/28/22 12:04 Sodium Chloride 0.9% 10 Ml Flush Syringe IV PRN PRN LINE FLUSH
[2022-04-01] MEDS: FUROSEMIDE 40 MG/4 ML INJ IV SCH (05:42)
[2022-04-01] MEDS: LOSARTAN 50 MG TAB PO SCH (10:11)
[2022-04-01] MEDS: CHOLECALCIFEROL (VIT D3) 1000 UNIT (25 mcg) TAB PO SCH (10:11)
[2022-04-01] MEDS: PANTOPRAZOLE 40 MG TAB PO SCH (10:11)
[2022-04-01] MEDS: RIVAROXABAN 20 MG TAB PO SCH (10:11)
[2022-04-01 10:16] VITALS: BP 131/62
--- NOTE | 2022-04-01 12:53 | Discharge Summary ---
Providers - Providers Date of Admission: 03/28/22 12:04 Date of discharge: 04/01/22 Attending physician: GENO LEONARDO Primary care physician: [employer] Hospitalization Condition: Stable Pertinent studies: Chest x-ray cardiomegaly with pulmonary edema Hospital course: 71 YO Female with COPD, Systolic/Diastolic CHF(EF 35%), HTN, DM, Metabolic Syndrome, GERD, Atrial Fib on therapeutic anticoagulation with Xarelto presents to ED for worsening shortness of breath and lower extremity swelling. Patient found to have a pulse oximetry of 89% on room air , placed on supplemental O2 and admitted for possible CHF exacerbation. 03/29/22: Patient on 2 L nasal cannula O2, continue diuresis, hold beta-jass for now. Continue Cozaar and Xarelto. Nebulizer breathing treatment as needed. Monitor ins and outs and daily weight. 03/30/2022; patient's symptoms slightly improved, closely monitor, continue current management DC planning per case management , Consults and recommendations noted and appreciated Assessment and plan: --Acute on chronic systolic heart failure[EF 35 to 40%] Continue IV diuretics, Cozaar, input output monitoring We will hold beta-jass as patient on acute exacerbation Low-sodium diet, fluid restriction, cardiology consult, cardiac diet. Input output monitoring, daily weights --COPD (chronic obstructive pulmonary disease) Oxygen by nasal cannula 3 L/min. DuoNeb by nebulizer every 4 hours. Albuterol via nebulizer every 4 hours as needed --Hypertension/moderate control Continue current antihypertensives losartan 25 mg p.o. daily. Spironolactone 25 mg p.o. daily. Coreg 6.25 mg p.o. twice daily As needed hydralazine --Acute respiratory failure with hypoxemia Due to COPD exacerbation oxygen by nasal cannula 3 L/min. DuoNeb by nebulizer every 4 hours. Albuterol via nebulizer every 4 hours as needed --History of paroxysmal atrial fibrillation Rate controlled Continue Coreg 6.25 mg p.o. twice daily. Xarelto 20 mg p.o. daily. --Obesity; BMI 41.6 Advised diet modification, exercise as tolerated, weight reduction when you are medically stable --Possible obstructive sleep apnea; CPAP at night --Full CODE STATUS -- DVT prophylaxis Patient is already on Xarelto 20 mg p.o. daily Closely monitor the patient and adjust the management as needed Plan of care reviewed with the patient and her nurse Also discussed the discharge planning with case management Disposition: 01 HOME / SELF CARE / HOMELESS Final Discharge Diagnosis (Prints w/discharge instructions): Acute on chronic systolic congestive heart failure EF 35 to 40%. COPD exacerbation. Hypertension. Acute respiratory failure with hypoxia requiring supplemental oxygen. History of paroxysmal atrial fibrillation. Obesity BMI 41.6. Possible obstructive sleep apnea Time spent for discharge: 40 min Core Measure Documentation - Palliative Care Palliative Care/ Comfort Measures: Not Applicable - Core Measures Any of the following diagnoses?: none Exam - Constitutional Vitals: Temp Pulse Resp BP Pulse Ox 98.0 F 64 18 131/62 98 04/01/22 07:30 04/01/22 10:00 04/01/22 07:30 04/01/22 07:30 04/01/22 11:00 General appearance: Present: no acute distress, well-nourished - EENT Eyes: Present: PERRL, EOM intact - Neck Neck: Present: supple, normal ROM - Respiratory Respiratory effort: normal Respiratory: bilateral: diminished, negative: rales, rhonchi, wheezing - Cardiovascular Rhythm: regular Heart Sounds: Present: S1 & S2 - Extremities Extremities: no ischemia, No edema - Abdominal General gastrointestinal: Present: soft, non-tender, non-distended, normal bowel sounds - Integumentary Integumentary: Present: clear, warm - Musculoskeletal Musculoskeletal: strength equal bilaterally - Psychiatric Psychiatric: appropriate mood/affect, cooperative - Neurologic Neurologic: CNII-XII intact, moves all extremities Plan Additional Instructions: Have worsening symptoms contact MD or go to the nearest emergency room. ER resting room air and ambulatory room air O2 sats are more than 96%. You do not need home oxygen. 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 Advised diet modification exercise as tolerated and weight reduction when you are medically stable Follow up with: PRIMARY CARE, [Primary Care Provider] - 7 Days Prescriptions: Spironolactone [Aldactone] 25 mg PO QDAY #30 tablet carvediloL [Coreg] 6.25 mg PO BID #60 tablet Losartan [Cozaar] 50 mg PO QDAY #30 tablet Furosemide [Lasix TAB] 40 mg PO QDAY #30 tablet Albuterol Mdi (or & Nicu Only) [ProAir HFA Inhaler] 2 puff IH QID PRN #8.5 gram PRN Reason: Shortness Of Breath Pantoprazole [Protonix TAB] 40 mg PO QDAC #30 tablet Cholecalciferol Vit D3 [Vitamin D3 1,000 UNIT TAB] 1,000 unit PO QDAY #15 tablet Rivaroxaban [Xarelto] 20 mg PO DAILY #30
== END 2022-04-01 15:49 | disposition home or self-care (01) | DRG 291 ==
LOC: ED 08:04 → 4A 12:04
PROVIDERS: ADMIT Internal Medicine; ATTEND Internal Medicine
PROC: 4A033R1 Measurement of Arterial Saturation, Peripheral, Percutaneous Approach (ICD-10-PCS; principal; 2022-03-28)
DX: I11.0 Hypertensive heart disease with heart failure (principal); I50.23 Acute on chronic systolic (congestive) heart failure; J96.01 Acute respiratory failure with hypoxia; Z68.41 Body mass index [BMI] 40.0-44.9, adult; J44.1 Chronic obstructive pulmonary disease with (acute) exacerbation; Z91.14 Patient's other noncompliance with medication regimen; I48.0 Paroxysmal atrial fibrillation; E11.9 Type 2 diabetes mellitus without complications; K21.9 Gastro-esophageal reflux disease without esophagitis; E88.81 Metabolic syndrome and other insulin resistance; E66.9 Obesity, unspecified; G47.33 Obstructive sleep apnea (adult) (pediatric); Z91.19 Patient's noncompliance with other medical treatment and regimen; Z83.3 Family history of diabetes mellitus; Z79.899 Other long term (current) drug therapy; Z82.49 Family history of ischemic heart disease and other diseases of the circulatory system
CPT/HCPCS: 36415; 71045; 80053; 82803; 82962; 83880; 84484; 85025; 85610; 85730; 93005; 94640; 94644; 94760; G0378; J1940; J2930

== ENCOUNTER 2022-07-07 15:39 | Emergency (ER) | payer MEDICARE ==
[2022-07-07 18:08] LABS: Mucus,Urine 1+ /HPF
[2022-07-07 18:14] LABS: RBC,Urine > 182.0 /HPF (0.0-6.0); WBC,Urine > 182.0 /HPF (0.0-6.0)
[2022-07-07 18:16] LABS: Color,Urine Red (Yellow)
[2022-07-08] MEDS ORDERED: cefTRIAXone/NS 1 GM/50 ML 1 GM/50 ML BAG IV ONE (02:18)
[2022-07-08 02:52] LABS: Basophils # (Auto) 0.1 K/mm3 (0.0-0.1); Basophils % (Auto) 1.2 % (0.0-1.8); Eosinophils # (Auto) 0.2 K/mm3 (0.0-0.4); Eosinophils % (Auto) 2.5 % (0.0-4.3); Hematocrit 39.5 % (30.3-42.9); Hemoglobin 12.6 gm/dl (10.1-14.3); Lymphocytes # (Auto) 1.7 K/mm3 (1.2-5.4); Lymphocytes % (Auto) 26.1 % (13.4-35.0); Mean Corpuscular HGB Conc 32 % (30-34); Mean Corpuscular Volume 87 fl (79-97); Monocytes # (Auto) 0.5 K/mm3 (0.0-0.8); Monocytes % (Auto) 8.3 % (0.0-7.3); Platelet Count 222 K/mm3 (140-440); Red Blood Count 4.56 M/mm3 (3.65-5.03)
--- NOTE | 2022-07-08 02:58 | Emergency Department Report ---
ED Female HPI - General Chief complaint: Abdominal Pain Stated complaint: VAG BLEEDING Time Seen by Provider: 07/08/22 02:01 Source: patient Mode of arrival: Ambulatory Limitations: No Limitations - History of Present Illness Initial comments: 71 yo F who present with urinary frequency and urgency with burning sensation x 1 days that is preceded with right flank discomfort the last 4 weeks. No fever or chills reported. No other modifying or associated factors. MD Complaint: vaginal bleeding, dysuria - Related Data Previous Rx's Medication Instructions Recorded Last Taken Type Albuterol Mdi (or & Nicu Only) 2 puff IH QID PRN #8.5 gram 04/01/22 Unknown Rx [ProAir HFA Inhaler] Cholecalciferol Vit D3 [Vitamin D3 1,000 unit PO QDAY #15 tablet 04/01/22 Unknown Rx 1,000 UNIT TAB] Furosemide [Lasix TAB] 40 mg PO QDAY #30 tablet 04/01/22 Unknown Rx Losartan [Cozaar] 50 mg PO QDAY #30 tablet 04/01/22 Unknown Rx Pantoprazole [Protonix TAB] 40 mg PO QDAC #30 tablet 04/01/22 Unknown Rx Rivaroxaban [Xarelto] 20 mg PO DAILY #30 04/01/22 Unknown Rx Spironolactone [Aldactone] 25 mg PO QDAY #30 tablet 04/01/22 Unknown Rx carvediloL [Coreg] 6.25 mg PO BID #60 tablet 04/01/22 Unknown Rx Phenazopyridine [Pyridium] 200 mg PO TID 2 Days #6 tab NS 07/08/22 Unknown Rx cephALEXin [Keflex] 500 mg PO Q12HR 7 Days #14 cap NS 07/08/22 Unknown Rx Allergies Allergy/AdvReac Type Severity Reaction Status Date / Time No Known Allergies Allergy Verified 03/31/22 09:46 ED Review of Systems ROS: Stated complaint: VAG BLEEDING Other details as noted in HPI Comment: All other systems reviewed and negative Constitutional: denies: fever, malaise, weakness Genitourinary: urgency, dysuria, frequency, hematuria ED Past Medical Hx - Past Medical History Hx Hypertension: Yes Hx Congestive Heart Failure: Yes Hx Diabetes: Yes Hx Asthma: Yes Hx COPD: Yes - Social History Smoking Status: Never Smoker - Medications Home Medications: Home Medications Medication Instructions Recorded Confirmed Last Taken Type Albuterol Mdi (or & Nicu Only) 2 puff IH QID PRN #8.5 gram 04/01/22 Unknown Rx [ProAir HFA Inhaler] Cholecalciferol Vit D3 [Vitamin D3 1,000 unit PO QDAY #15 tablet 04/01/22 Unknown Rx 1,000 UNIT TAB] Furosemide [Lasix TAB] 40 mg PO QDAY #30 tablet 04/01/22 Unknown Rx Losartan [Cozaar] 50 mg PO QDAY #30 tablet 04/01/22 Unknown Rx Pantoprazole [Protonix TAB] 40 mg PO QDAC #30 tablet 04/01/22 Unknown Rx Rivaroxaban [Xarelto] 20 mg PO DAILY #30 04/01/22 Unknown Rx Spironolactone [Aldactone] 25 mg PO QDAY #30 tablet 04/01/22 Unknown Rx carvediloL [Coreg] 6.25 mg PO BID #60 tablet 04/01/22 Unknown Rx Phenazopyridine [Pyridium] 200 mg PO TID 2 Days #6 tab NS 07/08/22 Unknown Rx cephALEXin [Keflex] 500 mg PO Q12HR 7 Days #14 cap NS 07/08/22 Unknown Rx ED Physical Exam - General Limitations: No Limitations General appearance: alert, in no apparent distress - Head Head exam: Present: normal inspection - Eye Eye exam: Present: normal appearance Pupils: Present: normal accommodation - ENT ENT exam: Present: normal exam, normal orophraynx, mucous membranes moist - Neck Neck exam: Present: normal inspection. Absent: tenderness - Respiratory Respiratory exam: Present: normal lung sounds bilaterally. Absent: respiratory distress, accessory muscle use - Cardiovascular Cardiovascular Exam: Present: regular rate, normal rhythm, normal heart sounds - GI/Abdominal GI/Abdominal exam: Present: soft, tenderness (suprapubic tenderness to palpation with right CVA tenderness to deep palpation), normal bowel sounds. Absent: distended - Extremities Exam Extremities exam: Present: normal inspection. Absent: tenderness - Back Exam Back exam: Present: normal inspection, CVA tenderness (R). Absent: tenderness, CVA tenderness (L) - Neurological Exam Neurological exam: Present: alert, oriented X3 - Psychiatric Psychiatric exam: Present: normal affect, normal mood - Skin Skin exam: Present: warm, normal color ED Course Vital Signs 07/07/22 16:26 Temperature 98.5 F Pulse Rate 60 Respiratory 16 Rate Blood Pressure 175/48 [Right] O2 Sat by Pulse 92 Oximetry ED Medical Decision Making - Lab Data Result diagrams: 07/08/22 02:00 - Medical Decision Making suprapubic tenderness to palpation with right CVA tenderness to deep palpation--will go ahead and order UA and treat accordingly Urinalysis noted with high urine bacterial with trace of leukocytes-- since this is symptomatic will go ahead and treat-- given Rocephin 1g IV x 1-- and will d/c home on pyridium + keflex with close follow up her PCP -- Critical care attestation.: If time is entered above; I have spent that time in minutes in the direct care of this critically ill patient, excluding procedure time. ED Disposition Clinical Impression: UTI (urinary tract infection) Qualifiers: Urinary tract infection type: site unspecified Hematuria presence: with hematuria Qualified Code(s): N39.0 - Urinary tract infection, site not spe cified; R31.9 - Hematuria, unspecified Disposition: 01 HOME / SELF CARE / HOMELESS Is pt being admited?: No Does the pt Need Aspirin: No Condition: Stable Instructions: Abdominal Pain (ED), Antibiotic Medicine, Adult, [id number], Urinary Tract Infection, Adult, [id number] Additional Instructions: Take your antibiotics and complete as prescribed to continue to help your symptoms Increase your daily fluid to help your hydration Please call and schedule follow-up with your primary doctor in the next 3 to 5 days for progress Please do not hesitate to call or return to emergency room if your symptoms worsen Prescriptions: cephALEXin [Keflex] 500 mg PO Q12HR 7 Days #14 cap NS Phenazopyridine [Pyridium] 200 mg PO TID 2 Days #6 tab NS Referrals: [facility] [Referring] - 3-5 Days Time of Disposition: 03:00
[2022-07-08 03:04] LABS: Alanine Aminotransferase 19 units/L (7-56); Albumin 4.6 g/dL (3.9-5); Blood Urea Nitrogen 19 mg/dL (7-17); Calcium 9.7 mg/dL (8.4-10.2); Hemolysis Index 31
[2022-07-08 03:15] LABS: BUN/Creatinine Ratio 38
[2022-07-08 03:48] VITALS: BP 131/77
== END 2022-07-08 04:30 | disposition home or self-care (01) ==
LOC: ED 15:39
DX: N39.0 Urinary tract infection, site not specified (principal); I11.0 Hypertensive heart disease with heart failure; I50.9 Heart failure, unspecified; E11.9 Type 2 diabetes mellitus without complications; J44.9 Chronic obstructive pulmonary disease, unspecified; Z79.899 Other long term (current) drug therapy
CPT/HCPCS: 81001; 96365; 99283; J0696; 36415; 80053; 85025